=== PATIENT | female | born 1965 | race Caucasian/White ===

== ENCOUNTER → 2022-08-23 09:51 | Outpatient (CLI) | payer OTHER, SELFPAY ==
--- NOTE | 2022-08-23 09:52 | DI.RAD.S_ITS ---
PROCEDURE: XR HAND RT MIN 3V INDICATIONS: Right hand middle finger injury TECHNIQUE: 3 views of the hand(s) acquired. COMPARISON: None. FINDINGS: Bones: No fractures or dislocations. Carpal bones are normally aligned. No suspicious bony lesions. Soft tissues: Soft tissue swelling adjacent to the right 3rd PIP and distal aspect of the right proximal phalanx without underlying fracture. IMPRESSION: No acute bone finding. Soft tissue swelling in the proximal 3rd digit. Dictated by: Mu Reed M.D. on 08/23/2022 at 10:07 Approved by: Mu Reed M.D. on 08/23/2022 at 10:09
== END ==
PROVIDERS: Referring Provider Registered Nurse; Visit Provider Registered Nurse
DX: M79.641 Pain in right hand (principal); M79.89 Other specified soft tissue disorders
CPT/HCPCS: 73130